=== PATIENT | male | born 1995 | race Two or more races ===

== ENCOUNTER 2019-10-02 07:49 | Emergency (ER) | payer OTHER ==
[~2019-10-02] VITALS: Ht 170.2 cm; Wt 101.0 kg
--- NOTE | 2019-10-02 08:43 | NUR ---
Pt to room from [facility], ambulatory with steady gait.
--- NOTE | 2019-10-02 09:06 | NUR ---
PT STATES N/V AND CONCERNED ABOUT REGULARITY OF BOWELS. AFTER URINE SAMPLE OBTAINED TO XRAY
[2019-10-02 09:25] LABS: BASOPHILS # (AUTO) 0.02 x10^3/uL (0-0.1); BASOPHILS % (AUTO) 0 % (0-1); EOSINOPHILS # (AUTO) 0.03 x10^3/uL (0-0.4); EOSINOPHILS % (AUTO) 1 % (1-7); LYMPHOCYTES # (AUTO) 1.04 x10^3/uL (1-3.4); LYMPHOCYTES % (AUTO) 23 % (22-44); MD NO; MEAN CORPUSCULAR HEMOGLOBIN 30.5 pg (27.5-34.5); MEAN CORPUSCULAR HGB CONC 33.7 g/dL (33.2-36.2); MEAN CORPUSCULAR VOLUME 90.3 fL (81-97); MEAN PLATELET VOLUME 7.8 fL (7.4-10.4); MONOCYTES # (AUTO) 0.45 x10^3/uL (0.2-0.8); MONOCYTES % (AUTO) 10 % (2-9); NEUTROPHILS # (AUTO) 2.93 x10^3/uL (1.8-6.8); NEUTROPHILS % (AUTO) 66 % (42-75); PLATELET COUNT 263 x10^3/uL (130-400); RED BLOOD COUNT 4.99 x10^6/uL (4.38-5.82); RED CELL DISTRIBUTION WIDTH 13.3 % (9.4-14.8)
[2019-10-02 09:31] LABS: ALBUMIN 3.8 g/dL (3.4-5.0); CALCIUM 8.3 mg/dL (8.5-10.1)
[2019-10-02 09:31] LABS: MICROSCOPIC INDICATED
[2019-10-02 09:36] LABS: ALANINE AMINOTRANSFERASE 14 U/L (12-78); ALKALINE PHOSPHATASE 86 U/L (45-117); ANION GAP 5 mmol/L (5-15); BILIRUBIN,TOTAL 0.8 mg/dL (0.2-1.0); CHLORIDE 107 mmol/L (98-107); CREATININE 0.89 mg/dL (0.7-1.3); TOTAL PROTEIN 7.7 g/dL (6.4-8.2)
[2019-10-02 09:40] LABS: CULTURE INDICATED? NO
[2019-10-02] MEDS ORDERED: KETOROLAC 30 MG/1 ML IVPush ONE (10:00)
--- NOTE | 2019-10-02 10:00 | NUR ---
REPORT TO ARACELI
[2019-10-02] MEDS ORDERED: KETOROLAC 30 MG/1 ML ONE (10:07)
--- NOTE | 2019-10-02 10:16 | NUR ---
pt resting in [facility]. vss. new orders for ct with contrast received. iv established and pt medicated per jan. no needs expressd. awaiting ctt.
--- NOTE | 2019-10-02 10:59 | NUR ---
all results back at this time. chart up for recheck.
[2019-10-02 11:05] VITALS: BP 131/93
--- NOTE | 2019-10-02 11:05 | NUR ---
pt resting in room. talking on phone. vss. no needs expressed. all results back at this time. chart up for recheck.
[2019-10-02] MEDS ORDERED: OMNIPAQUE 350 MG/ML, 100ML BOTTLE ONE (13:00)
== END 2019-10-02 12:25 | disposition home or self-care (01) ==
LOC: ED 12:23
DX: A09 Infectious gastroenteritis and colitis, unspecified (principal); R10.12 Left upper quadrant pain
CPT/HCPCS: 36415; 71046; 74177; 80053; 81001; 83690; 85025; 96374; 99284; J1885; Q9967